=== PATIENT | female | born 1995 | race Caucasian/White ===

== ENCOUNTER 2024-07-10 01:18 | Emergency (ER) | payer SELFPAY ==
[2024-07-10 01:19] VITALS: BMI 48.8
[2024-07-10 01:28] VITALS: BP 124/81
[2024-07-10 01:51] LABS: % Basophils 0.7 % (0-2); % Eosinophils 4.1 % (0-6); % Immature Granulocytes 0.4 % (0-0.5); % Lymphocytes 32.7 % (20.5-51.1); % Monocytes 6.7 % (1.7-9.3); % Neutrophils 55.4 % (42.2-75.2); Absolute Basophils 0.1 10^3/uL (0-0.2); Absolute Eosinophils 0.5 10^3/uL (0-0.7); Absolute Immature Granulocytes 0.1 10^3/uL (0-0.05); Absolute Lymphocytes 4.3 10^3/uL (1.2-3.4); Absolute Monocytes 0.9 10^3/uL (0.1-0.6); Absolute Neutrophils 7.3 10^3/uL (1.4-6.5); Hematocrit 41.4 % (37.0-47.0); Hemoglobin 14.9 g/dL (12.0-16.0); Mean Corpuscular Hgb 29.6 pg (27.0-31.0); Mean Corpuscular Volume 82.3 fL (81.0-99.0); Mean Platelet Volume 9.3 fL (7.4-10.4); Nucleated Red Blood Cells % 0 %; Platelet Count 325 10^3/uL (130-400); Red Blood Cell Count 5.03 10^6/uL (4.20-5.40); Red Cell Dist. Width 12.4 % (11.5-14.5); White Blood Cell Count 13.2 10^3/uL (4.8-10.8)
--- NOTE | 2024-07-10 01:59 | ED.GENMED ---
History of Present Illness
General
Chief Complaint: Seizure
Source: patient and family (Mom)
Time Seen by Provider: 07/10/24 01:33
History of Present Illness
History of Present Illness:
28-year-old female who presents after she had a seizure. She was with friends playing video games and states the next thing she knows people are standing over top of her. Friends were concerned and tried to start CPR but she began breathing again.
Patient states that she initially had seizures some years ago and have been on Keppra but it made her not feel well and made her depressed. She then switched to lamotrigine which also worked but later was switched to marijuana which had worked
well as well also. 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 That was about 2 weeks ago. Patient now just feels a little tired but otherwise normal. No headache or vision changes. No fevers.
Past History
Past History
ED Past Medical History: Seizures
Phy Exam
Physical Exam
Physical Exam:
CONSTITUTIONAL Patient alert and oriented to person, place and time. Well-appearing. Vital signs reviewed.
HEAD atraumatic, normocephalic.
EYES eyelids normal to inspection, Pupils equally round and reactive to light, Extraocular muscles intact, Conjunctiva normal, Sclera normal.
NECK normal range of motion, Trachea midline, no jugular venous distention.
RESPIRATORY CHEST No respiratory distress noted, Chest expansion equal, Bilateral breath sounds clear.
CARDIOVASCULAR regular rate and rhythm, Heart sounds normal.
ABDOMEN abdomen nontender, Bowel sounds normal. No distention.
BACK normal inspection, no obvious deformities
UPPER EXTREMITY range of motion normal, Motor strength normal, no cyanosis, no edema.
LOWER EXTREMITY range of motion normal, Motor strength normal, no cyanosis, no edema.
NEURO Speech normal, No focal motor deficits, Art coma scale 15, Memory normal, Cranial Nerves intact to screening exam.
SKIN skin warm, dry, and normal in color.
PSYCHIATRIC patient oriented to person place and time, Normal affect.
Course
Orders/Labs/Results
Orders:
Orders
07/10/24 01:41
Complete Blood Count/With Diff Urgent
Comprehensive Metabolic Panel Urgent
Abnormal Lab Results
07/10/24
01:41
WBC 13.2 H 10^3/uL
(4.8-10.8)
Abs Immat Gran (auto) 0.1 H 10^3/uL
(0-0.05)
Absolute Neuts (auto) 7.3 H 10^3/uL
(1.4-6.5)
Absolute Lymphs (auto) 4.3 H 10^3/uL
(1.2-3.4)
Absolute Monos (auto) 0.9 H 10^3/uL
(0.1-0.6)
Carbon Dioxide 17 L mmol/L
(22-30)
Glucose 104 H mg/dl
(70-99)
ALT 43 H U/L
(0-35)
07/10/24 01:41
07/10/24 01:41
Vital Signs
Initial and Last Documented VS:
Initial Vital Signs
Temp Pulse Resp Pulse Ox
98.4 F 118 27 95
07/10/24 01:19 07/10/24 01:19 07/10/24 01:19 07/10/24 01:19
Last Documented Vital Signs
Temp Pulse Resp BP Pulse Ox
98.4 F 99 22 115/78 98
07/10/24 01:19 07/10/24 02:00 07/10/24 02:00 07/10/24 02:00 07/10/24 02:00
MDM/Problems Addressed
MDM/Problems Addressed:
Seizure
*Pulse Oximetry
Patient hypoxic: no
*Critical Care Note
Total Time (30-74mins, 75-104mins- exclusive of procedures): Not Applicable
Data Reviewed
Source: patient and family
Prescriptions/Medications Considered But Not Given:
Consider antiepileptics but stable
Patient Management
Escalation/DeEscalation of care consider admission/obs:
Patient appears well. Currently stable. At this point I do not feel that his we need to start antiepileptics. I will recommend her to follow-up closely with neurology for further management. I will also file a [employer] form
ED Attending Note
-
Portions of this chart may have been created with voice recognition software.� Occasional wrong word or��sound alike� substitutions may have occurred due to the inherent limitations of voice recognition software.
Discharge Plan
Departure
Patient Disposition: Home (Routine Discharge)
Date of Disposition: 07/10/24
Time of Disposition: 02:26
Patient with high blood pressure during this ER visit?: No
Discharge Problem:
Seizure
Instructions: Seizures, Adult (DC)
Referrals:
PRIVATE,PHYSICIAN [Family Provider] -
Activity Restrictions/Additional Instructions:
Please contact your neurologist for follow-up in the next 1 week. Return immediately for recurrent seizures, fevers, vomiting, weakness of any kind or any other concerns. You may not drive until cleared by your doctor or neurology after 6 months
seizure-free
Interventions
Interventions:
*Risk Screen - Suicide Last Done: 07/10/24 01:19
*General Assessment Last Done: 07/10/24 01:19
*Neglect/Abuse Screening Last Done: 07/10/24 01:19
*ED COVID-19 Vaccine History Last Done: 07/10/24 01:19
ED- Cardiac Assessment Last Done: 07/10/24 01:27
ED- Neurological Assessment Last Done: 07/10/24 01:27
ED- Pulmonary Assessment Last Done: 07/10/24 01:27
Discharge Date and Time
Print Language: FRENCH
[2024-07-10 02:00] VITALS: BP 115/78
[2024-07-10 02:03] LABS: ALT (SGPT) 43 U/L (0-35); AST (SGOT) 36 U/L (14-36); Albumin 4.6 g/dl (3.5-5.0); Alkaline Phosphatase 69 U/L (38-126); Blood Urea Nitrogen 10 mg/dl (7-17); Calcium 9.5 mg/dl (8.4-10.2); Carbon Dioxide 17 mmol/L (22-30); Chloride 105 mmol/L (98-107); Estimated Creatinine Clearance > 125 ml/min; Glucose 104 mg/dl (70-99); Potassium 4.1 mmol/L (3.5-5.1); Sodium 141 mmol/L (135-145); Total Bilirubin 0.6 mg/dl (0.2-1.3); Total Protein 7.6 g/dl (6.3-8.2); eGFR > 60.00
[2024-07-10 03:00] VITALS: BP 106/64
[2024-07-10] MEDS: LAMICTAL 25 MG PO (03:19)
== END 2024-07-10 03:25 | disposition home or self-care (01) ==
LOC: EMR 01:18
PROVIDERS: EMERGENCY PHYSICIAN Emergency Medicine
DX: R56.9 Unspecified convulsions (principal)
CPT/HCPCS: 99283; 80053; 85025